=== PATIENT | male | born 1975 ===

== ENCOUNTER 2020-03-15 05:50 | Emergency (ER) | payer SELFPAY ==
--- NOTE | 2020-03-15 05:59 | EDM.PDOC ---
ED HPI GENERAL MEDICAL PROBLEM - General Chief Complaint: General Stated Complaint: CANCER- SEVERE ABDOMINAL PAIN Time Seen by Provider: 03/15/20 05:57 Source of Information: Reports: Patient History Limitations: Reports: No Limitations - History of Present Illness INITIAL COMMENTS - FREE TEXT/NARRATIVE: 45-year-old male with history of CVA, CAD, [place] x7 with 4 stents, epilepsy, bilateral lower extremity DVT, liver cancer presents with acute onset room spinning sensation 30 minutes prior to arrival. He woke up at 4:30am this morning with a nonradiating right frontal dull pressure headache, and started having dizziness symptoms at 5:30 AM. Associated with nausea, vomiting, tinnitus, shortness of breath. Dizziness is exacerbated with movement. He denies hearing loss, chest pain, abdominal pain. He was recently diagnosed with liver cancer and has not established care with oncology. He recently moved here from [place] a week ago. He is a smoker and uses marijuana. He admits to being selectively noncompliant with his 16 oral medications previously prescribed to him ROS: A 10-point review of systems, other than pertinent positives and negatives as stated per HPI, is otherwise negative PHYSICAL EXAM General: AOx4, GCS = 15, mild distress HEENT: dry mucous membrane, horizontal fatigable nystagmus Neck: supple, no meningismus, no Kernig or Brudzinski Cardiac: S1S2 RRR Respiratory: CTAB, no crackles or rales, no wheezing Abdomen: Soft, nontender, no rebound or guarding, nondistended, no pulsatile mass. Back: nontender Skin: psoriasis in bilateral UE Musculoskeletal: NVI distally, no deformity Neuro: No focal deficits. general Pain Score (Numeric/FACES): 8 - Related Data Allergies Allergy/AdvReac Type Severity Reaction Status Date / Time Penicillins Allergy Anaphylactic Verified 03/15/20 05:54 Shock Home Meds: Home Meds Meclizine [Antivert] 25 mg PO Q6H PRN #12 tab 03/15/20 [Rx] levETIRAcetam [Keppra] 1,000 mg PO BID 03/15/20 [History] ED ROS GENERAL - Review of Systems Review Of Systems: See Below (see dictation) ED EXAM, GENERAL - Physical Exam Exam: See Below (see dictation) EKG INTERPRETATION EKG Interpretation Comments: 78 Bpm, NSR, normal QRS interval, no STEMI. EKG and rhythm strip interpreted by me at 0614 Course - Vital Signs Last Recorded V/S: Last Vital Signs Temp 96.5 F L 03/15/20 05:55 Pulse 77 03/15/20 06:54 Resp 16 03/15/20 06:54 BP 108/75 03/15/20 06:54 Pulse Ox 95 03/15/20 06:54 - Orders/Labs/Meds Orders: Active Orders 24 hr Category Date Time Status Cardiac Monitoring [RC] . DIRECTED Care 03/15/20 06:14 Active EKG 12 Lead [EKG Documentation Completion] [RC] STAT Care 03/15/20 06:56 Active Pulse Oximetry [RC] ASDIRECTED Care 03/15/20 06:14 Active Sodium Chloride 0.9% [Saline Flush] Med 03/15/20 06:14 Active 10 ml FLUSH ASDIRECTED PRN Sodium Chloride 0.9% [Saline Flush] Med 03/15/20 06:14 Active 2.5 ml FLUSH ASDIRECTED PRN Saline Lock Insert [OM.PC] Stat Oth 03/15/20 06:14 Ordered Medication Orders Sodium Chloride (Saline Flush) 10 ml FLUSH ASDIRECTED PRN PRN Reason: Keep Vein Open Sodium Chloride (Saline Flush) 2.5 ml FLUSH ASDIRECTED PRN PRN Reason: Keep Vein Open Labs: Laboratory Tests 03/15/20 03/15/20 03/15/20 Range/Units 06:05 06:05 06:05 WBC 6.87 (4.0-11.0) K/uL RBC 5.10 (4.50-5.90) M/uL Hgb 15.0 (13.0-17.0) g/dL Hct 44.9 (38.0-50.0) % MCV 88.0 (80.0-98.0) fL MCH 29.4 (27.0-32.0) pg MCHC 33.4 (31.0-37.0) g/dL RDW Std Deviation 45.2 (28.0-62.0) fl RDW Coeff of [place] 14 (11.0-15.0) % Plt Count 251 (150-400) K/uL MPV 10.50 (7.40-12.00) fL Neut % (Auto) 41.7 L (48.0-80.0) % Lymph % (Auto) 46.0 H (16.0-40.0) % [place] % (Auto) 8.3 (0.0-15.0) % Eos % (Auto) 3.6 (0.0-7.0) % Baso % (Auto) 0.4 (0.0-1.5) % Neut # (Auto) 2.9 (1.4-5.7) K/uL Lymph # (Auto) 3.2 H (0.6-2.4) K/uL [place] # (Auto) 0.6 (0.0-0.8) K/uL Eos # (Auto) 0.3 (0.0-0.7) K/uL Baso # (Auto) 0.0 (0.0-0.1) K/uL Nucleated RBC % 0.0 /100WBC Nucleated RBCs # 0 K/uL INR 0.96 APTT 27.3 (18.6-31.3) SEC Sodium 142 (136-148) mmol/L Potassium 3.9 (3.5-5.1) mmol/L Chloride 106 (98-107) mmol/L Carbon Dioxide 26.9 (21.0-32.0) mmol/L BUN 9 (7.0-18.0) mg/dL Creatinine 0.9 (0.8-1.3) mg/dL Est Cr Clr Drug Dosing 98.70 mL/min Estimated GFR (MDRD) > 60.0 ml/min Glucose 104 (74-106) mg/dL Calcium 9.0 (8.5-10.1) mg/dL Total Bilirubin 0.2 (0.2-1.0) mg/dL AST 7 L (15-37) IU/L ALT 19 (14-63) IU/L Alkaline Phosphatase 94 (46-116) U/L Troponin I < 0.050 (0.000-0.056) ng/mL Total Protein 7.4 (6.4-8.2) g/dL Albumin 3.5 (3.4-5.0) g/dL Globulin 3.9 (2.6-4.0) g/dL Albumin/Globulin Ratio 0.9 (0.9-1.6) Meds: Medications Generic Name Dose Route Start Last Admin Trade Name Freq PRN Reason Stop Dose Admin Sodium Chloride 10 ml 03/15/20 06:14 Saline Flush FLUSH ASDIRECTED PRN Keep Vein Open Sodium Chloride 2.5 ml 03/15/20 06:14 Saline Flush FLUSH ASDIRECTED PRN Keep Vein Open Discontinued Medications Generic Name Dose Route Start Last Admin Trade Name Freq PRN Reason Stop Dose Admin Diphenhydramine HCl 50 mg 03/15/20 06:44 03/15/20 06:51 Benadryl IVPUSH 03/15/20 06:45 50 mg ONETIME ONE Administration Meclizine HCl 25 mg 03/15/20 06:14 03/15/20 06:49 Antivert PO 03/15/20 06:15 25 mg ONETIME ONE Administration Metoclopramide HCl 10 mg 03/15/20 06:44 03/15/20 06:49 Reglan IVPUSH 03/15/20 06:45 10 mg ONETIME ONE Administration - Re-Assessments/Exams Free Text/Narrative Re-Assessment/Exam: 03/15/20 06:26 Ordered IV fluids, meclizine 25 mg PO, Reglan 10mg IV, Benadryl 50mg IV 03/15/20 07:24 After treatments and a prolonged observation period in the ER, the patient improved clinically. His headache resolved and his dizziness resolved. I performed a repeat examination and the patient has not demonstrated any new abnormal findings. I did offer him admission given his multiple comorbidities and medication noncompliance. He is declining to be admitted to the hospital and would rather follow-up in the clinic for further assessment. He exhibits normal vital signs and has exhibited a normal gait. I advised the patient to return to the ER for reevaluation if symptoms worsened, and to follow up with their PCP within 2-3 days. MEDICAL DECISION MAKING: I reviewed the patients past medical records, lab and radiographic findings. I discussed the case with the patient. My differential diagnosis included: Peripheral vertigo, VBI, CVA. Patient symptoms improved with IV Reglan, Benadryl, meclizine and IV fluids. I offered him admission for his dizziness emesis multiple comorbidities that is not well managed. He is declining to be admitted and wants to be discharged with outpatient follow-up for further work-up. I given strict return precautions for worsening symptoms, dizziness, headache. Departure - Departure Time of Disposition: 07:21 Disposition: Home, Self-Care 01 Condition: Good Clinical Impression: Dizziness - Discharge Information *PRESCRIPTION DRUG MONITORING PROGRAM REVIEWED*: Not Applicable *COPY OF PRESCRIPTION DRUG MONITORING REPORT IN PATIENT KULDIP: Not Applicable Prescriptions: Meclizine [Antivert] 25 mg PO Q6H PRN #12 tab PRN Reason: Dizziness Referrals: PCP,None [Primary Care Provider] - 3 Days Forms: ED Department Discharge Additional Instructions: The following information is given to patients seen in the emergency department who are being discharged to home. This information is to outline your options for follow-up care. We provide all patients seen in our emergency department with a follow-up referral. The need for follow-up, as well as the timing and circumstances, are variable depending upon the specifics of your emergency department visit. If you don't have a primary care physician on staff, we will provide you with a referral. We always advise you to contact your personal physician following an emergency department visit to inform them of the circumstance of the visit and for follow-up with them and/or the need for any referrals to a consulting specialist. The emergency department will also refer you to a specialist when appropriate. This referral assures that you have the opportunity for follow-up care with a specialist. All of these measure are taken in an effort to provide you with optimal care, which includes your follow-up. Under all circumstances we always encourage you to contact your private physician who remains a resource for coordinating your care. When calling for follow-up care, please make the office aware that this follow-up is from your recent emergency room visit. If for any reason you are refused follow-up, please contact the [facility] Emergency Department at and asked to speak to the emergency department charge nurse. If you do not have a primary care doctor, please follow up with the clinics below within 3-5 days. [facility] [address] [place] [address] [facility] [address] [place] [address] Sepsis Event Note (ED) - Focused Exam Vital Signs: Vital Signs Temp Pulse Resp BP Pulse Ox 03/15/20 06:54 77 16 108/75 95 03/15/20 05:55 96.5 F L 84 14 112/76 98 - My Orders Last 24 Hours: My Active Orders 03/15/20 06:14 Cardiac Monitoring [RC] . DIRECTED Pulse Oximetry [RC] ASDIRECTED Sodium Chloride 0.9% [Saline Flush] 10 ml FLUSH ASDIRECTED PRN Sodium Chloride 0.9% [Saline Flush] 2.5 ml FLUSH ASDIRECTED PRN Saline Lock Insert [OM.PC] Stat 03/15/20 06:56 EKG 12 Lead [EKG Documentation Completion] [RC] STAT - Assessment/Plan Last 24 Hours: My Active Orders 03/15/20 06:14 Cardiac Monitoring [RC] . DIRECTED Pulse Oximetry [RC] ASDIRECTED Sodium Chloride 0.9% [Saline Flush] 10 ml FLUSH ASDIRECTED PRN Sodium Chloride 0.9% [Saline Flush] 2.5 ml FLUSH ASDIRECTED PRN Saline Lock Insert [OM.PC] Stat 03/15/20 06:56 EKG 12 Lead [EKG Documentation Completion] [RC] STAT
[2020-03-15] MEDS ORDERED: Meclizine 25 MG Tab PO ONE (06:14)
[2020-03-15] MEDS ORDERED: Sodium Chloride 0.9% 2.5 ML Syringe FLUSH PRN (06:14)
[2020-03-15] MEDS ORDERED: Sodium Chloride 0.9% 10 ML Syringe FLUSH PRN (06:14)
[2020-03-15 06:38] LABS: BLOOD UREA NITROGEN,BUN 9 mg/dL (7.0-18.0); CARBON DIOXIDE,CO2 26.9 mmol/L (21.0-32.0); CHLORIDE,CL 106 mmol/L (98-107); GLUCOSE RANDOM 104 mg/dL (74-106); POTASSIUM,K 3.9 mmol/L (3.5-5.1); SODIUM,NA 142 mmol/L (136-148)
[2020-03-15] MEDS ORDERED: diphenhydrAMINE 50 MG/ML SDV IVPUSH ONE (06:44)
[2020-03-15] MEDS ORDERED: Metoclopramide 10 MG/2 ML SDV IVPUSH ONE (06:44)
--- NOTE | 2020-03-15 06:59 | CT ---
INDICATION: Dizziness COMPARISON: None TECHNIQUE: CT examination of the head was performed as axial sections without intravenous contrast. Images were obtained from the vertex of the skull through the skull base. Please note that all CT scans at this facility use dose modulation, iterative reconstruction, and/or weight-based dosing when appropriate to reduce radiation dose to as low as reasonably achievable. FINDINGS: The brain shows no sign of mass lesion, mass effect, hemorrhage, or edema. The ventricles and sulci are normal in appearance for the patient`s age. The visualized portions of the orbits are normal in appearance. The osseous structures are normal in their appearance with no sign of abnormality in the skull base or calvarium. IMPRESSION: Normal unenhanced head CT. Please note that all CT scans at this facility use dose modulation, iterative reconstruction, and/or weight-based dosing when appropriate to reduce radiation dose to as low as reasonably achievable. Dictated by Doug Clifford MD @ Mar 15 2020 6:56AM Signed by Dr. Doug Clifford @ Mar 15 2020 6:58AM
--- NOTE | 2020-03-15 07:01 | CR ---
INDICATION: Dyspnea. Recent diagnosis of hepatic malignancy COMPARISON: None TECHNIQUE: AP portable upright single view study FINDINGS: TUBES AND LINES: None. HEART AND MEDIASTINUM: The heart size is normal. The mediastinal contour appears normal for patient age. LUNGS AND PLEURAL SPACES: Possible 9 millimeter nodule overlying the anterior aspect of the right 4th rib.The lungs and pleural spaces are otherwise unremarkable. Given the clinical history, a follow-up CT is advised at a clinically appropriate time OSSEOUS STRUCTURES: Age-appropriate appearance. No acute focal finding. IMPRESSION: Possible nodule. A follow-up CT is recommended at a clinically appropriate time. No diffuse abnormality. Pleural spaces appear normal Dictated by Doug Clifford MD @ Mar 15 2020 6:58AM Signed by Dr. Doug Clifford @ Mar 15 2020 7:00AM
== END 2020-03-15 07:50 | disposition home or self-care (01) ==
LOC: MW.ED 05:50 → EDBD 05:50 → MW.ED 07:50
DX: R42 Dizziness and giddiness (principal); I25.2 Old myocardial infarction; I25.10 Atherosclerotic heart disease of native coronary artery without angina pectoris; Z95.5 Presence of coronary angioplasty implant and graft; Z86.73 Personal history of transient ischemic attack (TIA), and cerebral infarction without residual deficits; F17.200 Nicotine dependence, unspecified, uncomplicated; Z88.0 Allergy status to penicillin; Z79.899 Other long term (current) drug therapy
CPT/HCPCS: 36415; 70450; 71045; 80053; 84484; 85025; 85610; 85730; 93005; 96374; 96375; 99284; A9270; J1200; J2765